=== PATIENT | female | born 1965 | race Caucasian/White ===

== ENCOUNTER → 2018-10-13 | Outpatient (CLI) | payer OTHER | END | disposition home or self-care (01) | LOC: CFH 12:11 | PROVIDERS: ATTEND Nurse Practitioner Family | DX: Z12.31 Encounter for screening mammogram for malignant neoplasm of breast (principal) | CPT/HCPCS: 77063; 77067 ==

== ENCOUNTER 2019-08-09 10:20 | Day surgery (SDC) | payer OTHER ==
[~2019-08-09] VITALS: Ht 163.8 cm; Wt 98.9 kg
[2019-08-09] MEDS ORDERED: LACTATED RINGERS 1,000 ML IV SCH (11:00)
[2019-08-09] MEDS ORDERED: GABAPENTIN 300 MG CAPSULE PO ONE (11:00)
[2019-08-09] MEDS ORDERED: ACETAMINOPHEN 500 MG TABLET PO ONE (11:00)
[2019-08-09 11:19] VITALS: BP 174/91
[2019-08-09] MEDS ORDERED: HYDR-3240 PO (11:46)
[2019-08-09] MEDS ORDERED: DOXE6TAB3 PO (11:46)
[2019-08-09] MEDS ORDERED: LACT1CAP35 PO (11:46)
[2019-08-09] MEDS ORDERED: ESTR2TAB PO (11:46)
[2019-08-09] MEDS ORDERED: ALBU8.5H8 INH (11:46)
[2019-08-09] MEDS ORDERED: VALA500T PO (11:46)
[2019-08-09] MEDS ORDERED: [UNRECOGNIZED DRUG - OTHER] PO (11:46)
[2019-08-09] MEDS ORDERED: OMEG1CAP23 PO (11:46)
[2019-08-09] MEDS ORDERED: ASPI-496 PO (11:46)
[2019-08-09] MEDS ORDERED: FENTANYL PF 100 MCG/2ML IV PRN (12:30)
[2019-08-09] MEDS ORDERED: OXYcodone 5 MG/5 ML ORAL.SOL UDC PO PRN (12:30)
[2019-08-09] MEDS ORDERED: HYDROmorphone 2 MG/ML, 1ML IVPush PRN (12:30)
[2019-08-09] MEDS ORDERED: MEPERIDINE/PF 25MG/ML,1ML IVPush PRN (12:30)
[2019-08-09] MEDS ORDERED: MIDAZOLAM 1 MG/ML, 2ML ONE (12:30)
[2019-08-09] MEDS ORDERED: EPHEDRINE 50 MG/ML, 1ML IVPush PRN (12:30)
[2019-08-09] MEDS ORDERED: FENTANYL PF 100 MCG/2ML ONE ×2 (12:30→13:48)
[2019-08-09] MEDS ORDERED: hydrALAzine 20 MG/ML, 1ML IV PRN (12:30)
[2019-08-09] MEDS ORDERED: ONDANSETRON 2MG/ML, 2ML IV PRN (12:30)
[2019-08-09] MEDS ORDERED: LABETALOL 5MG/ML, 20ML IV PRN (12:30)
[2019-08-09] MEDS ORDERED: PROMETHAZINE 25 MG/ML, 1ML IV PRN (12:30)
[2019-08-09] MEDS ORDERED: EPINEPHRINE 1 MG/ML, 1ML ONE (13:07)
[2019-08-09] MEDS ORDERED: BUPIVACAINE/PF 0.5% ONE (13:07)
[2019-08-09] MEDS ORDERED: SUCCINYLCHOLINE 20 MG/ML, 10ML ONE (13:27)
[2019-08-09] MEDS ORDERED: EPHEDRINE 50 MG/ML, 1ML ONE (13:27)
[2019-08-09] MEDS ORDERED: PROPOFOL 10 MG/ML, 20ML ONE (13:27)
[2019-08-09] MEDS ORDERED: KETOROLAC 30 MG/1 ML ONE (13:27)
[2019-08-09] MEDS ORDERED: DEXAMETHASONE 4 MG/ML, 1ML ONE ×2 (13:46)
[2019-08-09] MEDS ORDERED: ONDANSETRON 2MG/ML, 2ML ONE (13:47)
== END 2019-08-09 15:50 | disposition home or self-care (01) ==
LOC: OUT 10:20
PROVIDERS: ATTEND Surgery
DX: R22.2 Localized swelling, mass and lump, trunk (principal); J45.909 Unspecified asthma, uncomplicated; F17.210 Nicotine dependence, cigarettes, uncomplicated; Z79.82 Long term (current) use of aspirin; Z79.899 Other long term (current) drug therapy; Z88.8 Allergy status to other drugs, medicaments and biological substances; Z90.710 Acquired absence of both cervix and uterus; Z98.890 Other specified postprocedural states
CPT/HCPCS: 21931; 88304; J0171; J0330; J1100; J1885; J2250; J2405; J2704; J3010; J7120

== ENCOUNTER → 2021-03-17 | Outpatient (CLI) | payer OTHER ==
[~2021-03-17] MED LIST: ALBU8.5H8 INH; ASPI-496 PO; DOXE6TAB3 PO; ESTR2TAB PO; HYDR-2214 PO; LACT1CAP35 PO; OMEG1CAP23 PO; VALA500T8 PO; [UNRECOGNIZED DRUG - OTHER] PO
== END | disposition home or self-care (01) ==
LOC: CFH 14:01 → EDSTATUS 14:30 → MERGE 15:15
PROVIDERS: ATTEND Orthopaedic Surgery Foot and Ankle Surgery
DX: S86.012A Strain of left Achilles tendon, initial encounter (principal); R60.0 Localized edema; X58.XXXA Exposure to other specified factors, initial encounter; Y93.89 Activity, other specified; Y92.89 Other specified places as the place of occurrence of the external cause; Y99.8 Other external cause status